=== PATIENT | male | born 1990 | race Asian ===

== ENCOUNTER 2025-03-16 09:22 | Outpatient (CLI) | payer BC | END 2025-03-16 09:23 | disposition home or self-care (01) | LOC: CSHULT 09:22 | DX: R74.8 Abnormal levels of other serum enzymes (principal); K76.0 Fatty (change of) liver, not elsewhere classified | CPT/HCPCS: 76705 ==

== ENCOUNTER 2025-04-22 15:46 | Outpatient (CLI) | payer BC | END 2025-04-22 15:47 | disposition home or self-care (01) | LOC: CSHULT 15:46 | PROVIDERS: ATTEND Urology | DX: N13.30 Unspecified hydronephrosis (principal) | CPT/HCPCS: 76770 ==

== ENCOUNTER 2025-05-06 10:06 | Outpatient (CLI) | payer BC ==
[2025-05-06] MEDS ORDERED: Iopamidol 300 61% 100 ML VIAL FS ONE (11:06)
== END 2025-05-06 10:07 | disposition home or self-care (01) ==
LOC: CSHCT 10:06
PROVIDERS: ATTEND Urology
DX: N13.30 Unspecified hydronephrosis (principal); N20.0 Calculus of kidney; M48.8X7 Other specified spondylopathies, lumbosacral region
CPT/HCPCS: 74178; Q9967